=== PATIENT | female | born 1990 | race American Indian/Alaskan Native ===

== ENCOUNTER 2019-11-19 12:45 | Observation (INO) | payer MEDICAID ==
[2019-11-19] MEDS ORDERED: LACTATED RINGERS 500 ML IV ONE (13:14)
[2019-11-19] MEDS ORDERED: ACETAMINOPHEN 325 MG TAB PO PRN ×2 (13:27→20:31)
[2019-11-19 14:01] LABS: Bacteria,Urine 1+ /HPF (Negative); Bilirubin,Urine NEG (Negative); Blood,Urine NEG (Negative); Color,Urine Straw (Yellow); Protein,Urine <15 mg/dL mg/dL (Negative); Urobilinogen,Urine < 2.0 mg/dL (<2.0); WBC,Urine < 1.0 /HPF (0.0-6.0)
[2019-11-19 14:04] LABS: RBC,Urine < 1.0 /HPF (0.0-6.0)
[2019-11-19] MEDS ORDERED: LACTATED RINGERS 2,000 ML IV ONE (15:04)
--- NOTE | 2019-11-19 16:25 | Ultrasound Report ---
Limited OB Ultrasound Biophysical profile HISTORY: well-being. TECHNIQUE: Grayscale and color imaging performed. COMPARISON: None FINDINGS: Single viable intrauterine gestation with cephalic presentation and IVAN of 7 cm. Placenta i s seen anteriorly with heart rate of 152 bpm. A small anterior uterine fibroid is present. On biophysical profile, the fetus received a score of 2 out of 2 for breathing movement, movement, po sture/tone, and IVAN. Total score was 8 out of 8. Heart rate was 157 bpm for this portion of the exam. IMPRESSION: 1. Single viable intrauterine gestation as above. 2. Normal biophysical profile. Signer Name: Marlon Sahni MD Signed: 11/19/2019 4:20 PM Workstation Name: [id number]
--- NOTE | 2019-11-19 18:31 | Ultrasound Report ---
Biophysical profile INDICATION: well-being COMPARISON: None FINDINGS: breathing movement: 2/2 movement: 2/2 posture and tone: 2/2 Qualitative amniotic fluid volume: 2/2 IMPRESSION: Total score for biophysical profile is 8/8 heart rate is 157 bpm Signer Name: Jason Gordillo MD Signed: 11/19/2019 6:26 PM Workstation Name: [facility]
[2019-11-19] MEDS ORDERED: TERBUTALINE 1 MG/1 ML INJ SUB-Q ONE (18:45)
[2019-11-19] MEDS ORDERED: MAGNESIUM HYDROXIDE (MOM) ORAL LIQD UDC PO PRN (20:31)
[2019-11-19] MEDS ORDERED: DOCUSATE SODIUM 100 MG CAP PO PRN (20:31)
[2019-11-19] MEDS ORDERED: LACTATED RINGERS 1,000 ML ONE (20:32)
[2019-11-19] MEDS ORDERED: LACTATED RINGERS 1,000 ML IV SCH (21:00)
[2019-11-19] MEDS ORDERED: BETAMET ACET/BETAMET NA PH 6 MG/ML INJ 5 ML MDV IM SCH (21:00)
--- NOTE | 2019-11-19 23:37 | History and Physical Report ---
History of Present Illness Date of examination: 11/19/19 (Pt with lower abdominal and pelvic pain) Date of admission: 11/19/2019 Chief complaint: "I'm having lower stomach pain and pain in my bladder area" History of present illness: EDC Confirmation: 01/27/2020 Gestational Age: 7 6/7 weeks Past History : 2 Term Births: 1 Premature Births: 0 Living Children: 1 Para: 1 Mult. Births: 0 Prev : 0 Aborta: 0 Elect. Ab: 0 Spont. 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 of genital herpes: no Partner hx. of genital herpes: no Rash, Viral, or Febrile illness since last LMP? no Varicella/Chicken Pox Status: Previous Disease Genetic History Congenital Heart Defect: Mom: no Dad: no Hitesh Disease: Mom: no Dad: no Thalassemia Mom: no Dad: no Neural Tube Defect Mom: no Dad: no Down's Syndrome Mom: no Dad: no Mario-Sachs Mom: no Dad: no Sickle Cell Disease/Trait Mom: no Dad: no Hemophilia Mom: no Dad: no Muscular Dystrophy Mom: no Dad: no Cystic Fibrosis Mom: no Dad: no [place] Chorea Mom: no Dad: no Mental Retardation Mom: no Dad: no Fragile X Mom: no Dad: no Other Genetic/Chromosomal Disorder Mom: no Dad: no Child w/other defect Mom: no Dad: no Enviromental Exposures Xray Exposure: no Medication, drug, or alcohol use since LMP: no Chemical/Other Exposure: no Exposure to Cat Liter: no Hx of Parvovirus (Fifth Disease): no Occupational Exposure to Children: none Active Medications (reviewed today): ZOFRAN ODT 8 MG ORAL TABLET DISINTEGRATING (ONDANSETRON) 1 po q12hrs prn PLUS 27-1 MG ORAL TABLET ( VIT-FE FUMARATE-FA) 1 po daily Current Allergies (reviewed today): No known allergies Past History Past Medical History: no pertinent history Past Surgical History: no surgical history 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 Family/Genetic History: diabetes, hypertension Social history: no significant social history - Obstetrical History Expected Date of Delivery: 01/27/20 Actual Gestation: 30 Week(s) 2 Day(s) : 2 Para: 1 Hx # Term Pregnancies: 1 Number of Pregnancies: 0 Spontaneous Abortions: 0 Induced : 0 Number of Living Children: 1 Medications and Allergies Allergies Allergy/AdvReac Type Severity Reaction Status Date / Time No Known Allergies Allergy Verified 10/09/13 10:45 Home Medications Medication Instructions Recorded Confirmed Last Taken Type Vit,Calc76/Iron/Folic 1 each PO QDAY 10/09/13 10/09/13 Unknown History [Prenatabs Rx Tablet] Ibuprofen [Motrin 800 MG tab] 800 mg PO TID PRN #30 tablet 10/10/13 Unknown Rx Active Meds: Active Medications Acetaminophen (Tylenol) 1,000 mg PO Q4H PRN PRN Reason: Non Cardiac Pain or Temp>100.5 Last Admin: 11/19/19 14:16 Dose: 1,000 mg Documented by: Acetaminophen (Tylenol) 650 mg PO Q4H PRN PRN Reason: Pain MILD(1-3)/Fever >100.5/CRABTREE Betamethasone Acet/Betameth SodPhos (Celestone Soluspan) 12 mg IM Q24H ABY Stop: 11/20/19 20:59 Docusate Sodium (Colace) 100 mg PO Q12H PRN PRN Reason: Constipation Lactated Ringer's (Lactated Ringers) 1,000 mls @ 125 mls/hr IV DIRECT ABY Last Admin: 11/19/19 21:31 Dose: 125 mls/hr Documented by: Magnesium Hydroxide (Milk Of Magnesia) 30 ml PO QHS PRN PRN Reason: Laxative Effect Multivitamins/Iron/Calcium ( Vitamin) 1 each PO QDAY [facility] Review of Systems All systems: negative - Vital Signs Vital signs: Vital Signs Pulse BP 75 104/62 11/19/19 13:08 11/19/19 13:08 Temp Pulse Resp BP Pulse Ox 98.1 F 94 H 18 98/54 96 11/19/19 23:28 11/19/19 23:33 11/19/19 23:28 11/19/19 23:33 11/19/19 23:29 - Physical Exam Breasts: Positive: deferred Cardiovascular: Regular rate, Normal S1, Normal S2 Lungs: Positive: Clear to auscultation Abdomen: Positive: normal appearance, soft, normal bowel sounds Genitourinary (Female): Positive: normal external genitalia, normal perenium Vulva: both: normal Vagina: Positive: normal moisture Cervix: Negative: lesion, discharge Uterus: Positive: normal size, normal contour Anus/Rectum: Positive: normal perianal skin, heme negative. Negative: rectal mass, hemorrhoids Extremities: Positive: normal Deep Tendon Reflex Grade: Normal +2 - Obstetrical FHR: category 2 FHR comments: Upon examination in triage it was noted that she had a category 2 strip. Ctxs with variables and late decelerations noted. Cervical exam cl/th/hi. IV was initiated and 1 liter bolus X 2 was given. She was also repositioned and O2 was administered. Uterine Contraction Monitor Mode: External Cervical Dilatation: 0 Cervical Effacement Percentage: 0 station: -3 Uterine Contraction Pattern: Irregular Uterine Tone Measurement Phase: Resting Uterine Contraction Intensity: Moderate Results Result Diagrams: 11/19/19 21:13 Abnormal lab results 11/19/19 Range/Units 13:10 Urine pH 8.0 H (5.0-7.0) All other labs normal. GBS Unknown HBsAg Screen Negative Negative *1 RPR Non Reactive Non Reactive *2 Rubella Antibodies, IgG 6.13 index Immune >0.99 *3 Non-immune <0.90 Equivocal 0.90 - 0.99 Immune >0.99 ABO Grouping O *4 Rh Factor Positive *5 Please note: Prior records for this patient's ABO / Rh type are not available for additional verification. Antibody Screen Negative Negative *6 WBC 5.0 x10E3/uL 3.4-10.8 *7 RBC [L] 3.39 x10E6/uL 3.77-5.28 *8 Hemoglobin [L] 10.5 g/dL 11.1-15.9 *9 Hematocrit [L] 31.0 % 34.0-46.6 *10 MCV 91 fL 79-97 *11 MCH 31.0 pg 26.6-33.0 *12 MCHC 33.9 g/dL 31.5-35.7 *13 RDW 12.9 % 12.3-15.4 *14 Platelets 248 x10E3/uL 150-450 *15 Neutrophils 64 % Not Estab. *16 Lymphs 28 % Not Estab. *17 Monocytes 8 % Not Estab. *18 Eos 0 % Not Estab. *19 Basos 0 % Not Estab. *20 ! Immature Cells <No Reported Value> *21 Neutrophils (Absolute) 3.2 x10E3/uL 1.4-7.0 *22 Lymphs (Absolute) 1.4 x10E3/uL 0.7-3.1 *23 Monocytes(Absolute) 0.4 x10E3/uL 0.1-0.9 *24 Eos (Absolute) 0.0 x10E3/uL 0.0-0.4 *25 Baso (Absolute) 0.0 x10E3/uL 0.0-0.2 *26 ! Immature Granulocytes 0 % Not Estab. *27 ! Immature Grans (Abs) 0.0 x10E3/uL 0.0-0.1 *28 ! NRBC <No Reported Value> *29 Hematology Comments: <No Reported Value> *30 Tests: (2) HB Solu + Rflx [facility] ([id number]) Hemoglobin (Hgb) Solubility Negative Negative *31 Tests: (3) Panel 123061 ([id number]) HIV Screen 4th Generation wRfx Non Reactive Non Reactive *32 Tests: (4) HCV Ab w/Rflx to Verification ([id number]) ! HCV Ab 0.1 s/co ratio 0.0-0.9 *33 Tests: (5) Comment: ([id number]) ! Comment: SPR[facility] *34 Non reactive HCV antibody screen is consistent with no HCV infection, unless recent infection is suspected or other evidence exists to indicate HCV infection. Tests: (6) Urine Culture, Routine (183897) Urine Culture, Routine Final report *35 Assessment and Plan A: 29 y.o. @ 30+ wks with c/o lower abdominal and pelvic pain, being observed for labor, with category 2 tracing. P:Consulted and made plan of care with Dr. Ruiz. Admit to obs, administer terb, betamethasone, continue with IV fluids, NPO for now, and continue to watch maternal and status. Consult with [facility] for further recommendations, call placed. Plan discussed with pt and family present in room with her. Pt agrees with plan of care.
[2019-11-20 05:58] LABS: Basophils % (Auto) 0.5 % (0.0-1.8); Eosinophils % (Auto) 0.3 % (0.0-4.3); Hematocrit 31.1 % (30.3-42.9); Hemoglobin 10.5 gm/dl (10.1-14.3); Lymphocytes # (Auto) 1.8 K/mm3 (1.2-5.4); Lymphocytes % (Auto) 19.7 % (13.4-35.0); Mean Corpuscular HGB Conc 34 % (30-34); Mean Corpuscular Volume 97 fl (79-97); Monocytes # (Auto) 0.7 K/mm3 (0.0-0.8); Monocytes % (Auto) 7.6 % (0.0-7.3); Platelet Count 216 K/mm3 (140-440); Red Cell Distribution Width 12.6 % (13.2-15.2)
--- NOTE | 2019-11-20 06:34 | Progress Note ---
Assessment and Plan pt resting with voiced c/o occasional ctx. VSS IVFs infusing. Second dose of BMZ due this evening @ 2139. Will continue POC [facility] consulted. - Patient Problems (1) 30 weeks gestation of Onset Date: ~11/20/19 Current Visit: Yes Status: Acute Plan to address problem: Pt to be seen by AMFM today. Will continue plan as ordered. (2) contractions Onset Date: ~11/20/19 Current Visit: Yes Status: Acute Plan to address problem: Ctx have decreased overall per pt. in timing and intensity. "I have been able to sleep." Subjective - Subjective Date of service: 11/20/19 (resting; c/o occassional ctx) Principal diagnosis: IUP 30w2d with ctx; 2nd dose BMZ @ 2139 Patient reports: movement normal Objective - Vital Signs Vital Signs: Vital Signs - 12hr 11/19/19 11/19/19 11/19/19 19:00 19:53 19:58 Temperature Pulse Rate 86 77 93 H Respiratory Rate Blood Pressure 111/67 112/66 Blood Pressure [Right] O2 Sat by Pulse 96 Oximetry 11/19/19 11/19/19 11/19/19 20:03 20:08 20:13 Temperature 98.8 F Pulse Rate 88 91 H 96 H Respiratory 18 Rate Blood Pressure Blood Pressure 112/66 [Right] O2 Sat by Pulse 98 99 100 Oximetry 11/19/19 11/19/19 11/19/19 20:18 20:23 20:28 Temperature Pulse Rate 96 H 117 H 102 H Respiratory Rate Blood Pressure Blood Pressure [Right] O2 Sat by Pulse 99 99 99 Oximetry 11/19/19 11/19/19 11/19/19 20:33 20:38 20:43 Temperature Pulse Rate 108 H 103 H 98 H Respiratory Rate Blood Pressure Blood Pressure [Right] O2 Sat by Pulse 99 98 98 Oximetry 11/19/19 11/19/19 11/19/19 20:48 20:53 20:58 Temperature Pulse Rate 107 H 108 H 98 H Respiratory Rate Blood Pressure Blood Pressure [Right] O2 Sat by Pulse 97 97 97 Oximetry 11/19/19 11/19/19 11/19/19 21:03 21:08 21:13 Temperature Pulse Rate 95 H 89 108 H Respiratory Rate Blood Pressure Blood Pressure [Right] O2 Sat by Pulse 98 97 98 Oximetry 11/19/19 11/19/19 11/19/19 21:18 21:23 21:28 Temperature Pulse Rate 100 H 87 69 Respiratory Rate Blood Pressure Blood Pressure [Right] O2 Sat by Pulse 100 99 69 L Oximetry 11/19/19 11/19/19 11/19/19 23:28 23:29 23:33 Temperature 98.1 F Pulse Rate 94 H 88 94 H Respiratory 18 Rate Blood Pressure 98/54 Blood Pressure 98/54 [Right] O2 Sat by Pulse 99 96 Oximetry 11/20/19 11/20/19 11/20/19 04:02 04:03 04:07 Temperature 97.8 F Pulse Rate 80 77 79 Respiratory 16 Rate Blood Pressure 99/58 Blood Pressure 99/58 [Right] O2 Sat by Pulse 95 95 Oximetry 11/20/19 11/20/19 11/20/19 04:12 04:17 04:22 Temperature Pulse Rate 78 74 69 Respiratory Rate Blood Pressure Blood Pressure [Right] O2 Sat by Pulse 98 98 99 Oximetry 11/20/19 11/20/19 11/20/19 04:27 04:32 04:37 Temperature Pulse Rate 71 73 79 Respiratory Rate Blood Pressure Blood Pressure [Right] O2 Sat by Pulse 99 99 99 Oximetry 11/20/19 04:49 Temperature Pulse Rate 62 Respiratory Rate Blood Pressure Blood Pressure [Right] O2 Sat by Pulse 71 L Oximetry - Exam Breasts: deferred Cardiovascular: Regular rate Lungs: Normal air movement Abdomen: Present: normal appearance, soft. Absent: distention, tenderness Uterus: Present: normal FHR: auscultation normal, category 2 FHR comments: pt will have a spontaneous decel but overall the strip is Cat 1 Uterine Contraction Monitor Mode: External Uterine Contraction Pattern: Irregular (1-2 per hour) Uterine Tone Measurement Phase: Resting Uterine Contraction Intensity: Mild Extremities: normal Deep Tendon Reflex Grade: Normal +2 - Labs Labs: Abnormal Labs 11/19/19 11/19/19 13:10 21:13 RBC 3.20 L MCH 33 H RDW 12.6 L [place] % (Auto) 7.6 H Seg Neutrophils % 71.9 H Urine pH 8.0 H Laboratory Results - last 24 hr 11/19/19 11/19/19 11/19/19 13:10 21:13 21:13 WBC 9.3 RBC 3.20 L Hgb 10.5 Hct 31.1 MCV 97 MCH 33 H MCHC 34 RDW 12.6 L Plt Count 216 MPV Lymph % (Auto) 19.7 [place] % (Auto) 7.6 H Eos % (Auto) 0.3 Baso % (Auto) 0.5 Lymph # 1.8 [place] # 0.7 Eos # 0.0 Baso # 0.0 Add Manual Diff Seg Neutrophils % 71.9 H Seg Neutrophils # 6.7 Urine Color Straw Urine Turbidity Clear Urine pH 8.0 H Ur Specific [place] 1.005 Urine Protein <15 mg/dl Urine Glucose (UA) Neg Urine Ketones Neg Urine Blood Neg Urine Nitrite Neg Urine Bilirubin Neg Urine Urobilinogen < 2.0 Ur Leukocyte Esterase Neg Urine WBC (Auto) < 1.0 Urine RBC (Auto) < 1.0 Urine Bacteria (Auto) 1+ Syphilis IgG Antibody Non-reactive HIV 1&2 Antibody Rapid HIV P24 Antigen Blood Type Antibody Screen 11/19/19 11/19/19 21:13 21:25 WBC Cancelled RBC Cancelled Hgb Cancelled Hct Cancelled MCV Cancelled MCH Cancelled MCHC Cancelled RDW Cancelled Plt Count Cancelled MPV Cancelled Lymph % (Auto) Cancelled [place] % (Auto) Cancelled Eos % (Auto) Cancelled Baso % (Auto) Cancelled Lymph # Cancelled [place] # Cancelled Eos # Cancelled Baso # Cancelled Add Manual Diff Cancelled Seg Neutrophils % Cancelled Seg Neutrophils # Cancelled Urine Color Urine Turbidity Urine pH Ur Specific [place] Urine Protein Urine Glucose (UA) Urine Ketones Urine Blood Urine Nitrite Urine Bilirubin Urine Urobilinogen Ur Leukocyte Esterase Urine WBC (Auto) Urine RBC (Auto) Urine Bacteria (Auto) Syphilis IgG Antibody HIV 1&2 Antibody Rapid Non react HIV P24 Antigen Non react Blood Type O POSITIVE Antibody Screen Negative
[2019-11-20] MEDS ORDERED: PRENATAL VIT27-FE FUMARATE-FOLIC ACID VIT TAB PO SCH (10:00)
--- NOTE | 2019-11-20 12:54 | Event Note ---
Date: 11/20/19 (spoke with Dr Riley) Dr Riley ask that I order a doppler and she will have her office call the pt and phani her appt in their office. Unless there is any chg in condition pt may go after 2nd dose of BMZ. Report given to Dr Orozco.
--- NOTE | 2019-11-20 13:54 | Ultrasound Report ---
Umbilical artery velocity exam INDICATION: IUGR at 30 weeks FINDINGS: heart rate is 149 bpm. There is positive diastolic flow throughout the exam. The free loop S/D ratios were calculated at 3 s ites measuring 3.43, 3.82 and 4.85. The average S/D ratio4.0 and a intermittent diastolic waveform The resistive indices at the 3 sites measure 0.71, 0.74, 0.79 with an average of 0.[address] tolic waveform IMPRESSION: The S/D ratio is elevated. The resistive index is elevated. Signer Name: Jason Gordillo MD Signed: 11/20/2019 1:50 PM Workstation Name: [id number]
--- NOTE | 2019-11-20 18:12 | Progress Note ---
<KITTY DEVI - Last Filed: 11/20/19 18:09> Assessment and Plan Dr Orozco consulted with Dr Riley @ [facility] Will continue EFM overnight and d/c in the AM. Pt will have appt with [facility] in their [place] office @ 0900. Pt instructed to hydrate and to monitor FKC. IVF converted to INT. Regular diet. PO fluids @ bedside. All questions addressed. Pt and family agree to POC - Patient Problems (1) 30 weeks gestation of Onset Date: ~11/20/19 Current Visit: Yes Status: Acute (2) contractions Onset Date: ~11/20/19 Current Visit: Yes Status: Acute Subjective - Subjective Date of service: 11/20/19 (pt in good spirits) Principal diagnosis: IUP 30w2d with ctx; 2nd dose BMZ @ 2140 Patient reports: movement normal Objective - Vital Signs Vital Signs: Vital Signs - 12hr 11/20/19 11/20/19 11/20/19 06:45 12:22 12:23 Temperature 99.4 F Pulse Rate 87 78 Respiratory 18 Rate Blood Pressure 88/50 90/53 O2 Sat by Pulse Oximetry 11/20/19 11/20/19 11/20/19 12:25 12:28 16:24 Temperature 98.1 F Pulse Rate 86 79 Respiratory Rate Blood Pressure 91/50 O2 Sat by Pulse 99 Oximetry - Exam Breasts: deferred Cardiovascular: Regular rate Lungs: Normal air movement Abdomen: Present: normal appearance, soft, normal bowel sounds. Absent: distention, tenderness Uterus: Present: normal FHR: auscultation normal, category 1 Uterine Contraction Monitor Mode: External Uterine Contraction Pattern: Absent Uterine Tone Measurement Phase: Resting Extremities: normal Deep Tendon Reflex Grade: Normal +2 - Labs Labs: Abnormal Labs 11/19/19 11/19/19 13:10 21:13 RBC 3.20 L MCH 33 H RDW 12.6 L [place] % (Auto) 7.6 H Seg Neutrophils % 71.9 H Urine pH 8.0 H Laboratory Results - last 24 hr 11/19/19 11/19/19 11/19/19 21:13 21:13 21:13 WBC 9.3 Cancelled RBC 3.20 L Cancelled Hgb 10.5 Cancelled Hct 31.1 Cancelled MCV 97 Cancelled MCH 33 H Cancelled MCHC 34 Cancelled RDW 12.6 L Cancelled Plt Count 216 Cancelled MPV Cancelled Lymph % (Auto) 19.7 Cancelled [place] % (Auto) 7.6 H Cancelled Eos % (Auto) 0.3 Cancelled Baso % (Auto) 0.5 Cancelled Lymph # 1.8 Cancelled [place] # 0.7 Cancelled Eos # 0.0 Cancelled Baso # 0.0 Cancelled Add Manual Diff Cancelled Seg Neutrophils % 71.9 H Cancelled Seg Neutrophils # 6.7 Cancelled Syphilis IgG Antibody Non-reactive HIV 1&2 Antibody Rapid Non react HIV P24 Antigen Non react Blood Type Antibody Screen 11/19/19 21:25 WBC RBC Hgb Hct MCV MCH MCHC RDW Plt Count MPV Lymph % (Auto) [place] % (Auto) Eos % (Auto) Baso % (Auto) Lymph # [place] # Eos # Baso # Add Manual Diff Seg Neutrophils % Seg Neutrophils # Syphilis IgG Antibody HIV 1&2 Antibody Rapid HIV P24 Antigen Blood Type O POSITIVE Antibody Screen Negative <MAYRA OROZCO - Last Filed: 11/20/19 19:52> Assessment and Plan Plan of care explained, questions encouraged and answered, she voiced understanding and agrees with plan of care Objective - Vital Signs Vital Signs: Vital Signs - 12hr 11/20/19 11/20/19 11/20/19 12:22 12:23 12:25 Temperature Pulse Rate 87 78 86 Blood Pressure 88/50 90/53 O2 Sat by Pulse 99 Oximetry 11/20/19 11/20/19 11/20/19 12:28 16:24 18:29 Temperature 98.1 F Pulse Rate 79 87 Blood Pressure 91/50 101/65 O2 Sat by Pulse 100 Oximetry 11/20/19 11/20/19 11/20/19 18:34 18:39 18:44 Temperature Pulse Rate 92 H 83 85 Blood Pressure O2 Sat by Pulse 100 100 100 Oximetry 11/20/19 11/20/19 11/20/19 18:49 18:54 18:59 Temperature Pulse Rate 89 85 86 Blood Pressure O2 Sat by Pulse 100 100 100 Oximetry 11/20/19 11/20/19 11/20/19 19:04 19:09 19:14 Temperature Pulse Rate 80 82 84 Blood Pressure O2 Sat by Pulse 100 99 98 Oximetry 11/20/19 11/20/1911/20/20 19:19 19:24 19:29 Temperature Pulse Rate 79 85 87 Blood Pressure O2 Sat by Pulse 98 98 98 Oximetry 11/20/19 11/20/19 11/20/19 19:34 19:39 19:44 Temperature Pulse Rate 86 89 84 Blood Pressure O2 Sat by Pulse 98 99 98 Oximetry - Labs Labs: Abnormal Labs 11/19/19 11/19/19 13:10 21:13 RBC 3.20 L MCH 33 H RDW 12.6 L [place] % (Auto) 7.6 H Seg Neutrophils % 71.9 H Urine pH 8.0 H Laboratory Results - last 24 hr 11/19/19 11/19/19 11/19/19 21:13 21:13 21:13 WBC 9.3 Cancelled RBC 3.20 L Cancelled Hgb 10.5 Cancelled Hct 31.1 Cancelled MCV 97 Cancelled MCH 33 H Cancelled MCHC 34 Cancelled RDW 12.6 L Cancelled Plt Count 216 Cancelled MPV Cancelled Lymph % (Auto) 19.7 Cancelled [place] % (Auto) 7.6 H Cancelled Eos % (Auto) 0.3 Cancelled Baso % (Auto) 0.5 Cancelled Lymph # 1.8 Cancelled [place] # 0.7 Cancelled Eos # 0.0 Cancelled Baso # 0.0 Cancelled Add Manual Diff Cancelled Seg Neutrophils % 71.9 H Cancelled Seg Neutrophils # 6.7 Cancelled Syphilis IgG Antibody Non-reactive HIV 1&2 Antibody Rapid Non react HIV P24 Antigen Non react Blood Type Antibody Screen 11/19/19 21:25 WBC RBC Hgb Hct MCV MCH MCHC RDW Plt Count MPV Lymph % (Auto) [place] % (Auto) Eos % (Auto) Baso % (Auto) Lymph # [place] # Eos # Baso # Add Manual Diff Seg Neutrophils % Seg Neutrophils # Syphilis IgG Antibody HIV 1&2 Antibody Rapid HIV P24 Antigen Blood Type O POSITIVE Antibody Screen Negative
[2019-11-21 06:58] VITALS: BP 111/60
--- NOTE | 2019-11-21 07:28 | Discharge Summary ---
Providers - Providers Date of Admission: 11/19/19 12:46 Date of discharge: 11/21/19 Attending physician: FLORENCIO LEO 11/19/19 20:31 Consult to Physician [CONS] Routine Comment: Consulting Provider: HARRY ADDISON Physician Instructions: Pt with contractions Reason For Exam: High risk patient Primary care physician: FLORENCIO LEO Hospitalization Reason for admission: labor and IUGR Condition: Good Procedures: u/s and monitoring Hospital course: uncomplicated antepartum admission Disposition: SC-01 TO HOME OR SELFCARE - Discharge Diagnoses (1) IUGR (intrauterine growth restriction) Status: Acute (2) 30 weeks gestation of Status: Acute (3) contractions Status: Resolved Core Measure Documentation - Palliative Care Palliative Care/ Comfort Measures: Not Applicable - Core Measures Any of the following diagnoses?: none Exam - Constitutional Vitals: Temp Pulse Resp BP Pulse Ox 97.7 F 94 H 18 111/60 84 11/21/19 07:02 11/21/19 07:23 11/20/19 20:22 11/21/19 06:57 11/21/19 07:23 General appearance: Present: no acute distress, well-nourished - EENT Eyes: Present: PERRL ENT: hearing intact, clear oral mucosa - Neck Neck: Present: supple, normal ROM - Respiratory Respiratory effort: normal Respiratory: bilateral: CTA - Cardiovascular Heart Sounds: Present: S1 & S2. Absent: rub, click - Extremities Extremities: pulses symmetrical, No edema - Abdominal General gastrointestinal: Present: soft, non-tender, non-distended, normal bowel sounds Female genitourinary: Present: normal - Integumentary Integumentary: Present: clear, warm, dry - Musculoskeletal Musculoskeletal: gait normal, strength equal bilaterally - Psychiatric Psychiatric: appropriate mood/affect, intact judgment & insight - Neurologic Neurologic: CNII-XII intact, moves all extremities - Additional findings Additional findings: overall FHT CAT 1 Plan Activity: no restrictions Diet: regular Follow up with: FLORENCIO LEO MD [Primary Care Provider] - 7 Days (Please keep your appointment with [facility] this morning @ 0900 and call [phone] to schedule an appointment for next week in our office. Call if you do not feel your baby move at least 4 times in 1 hour.)
== END 2019-11-21 08:11 | disposition home or self-care (01) ==
LOC: TRG 12:45 → LD 12:46 → TRG 12:46 → LD 17:45
PROVIDERS: ADMIT Obstetrics & Gynecology; ATTEND Obstetrics & Gynecology
DX: O26.893 Other specified pregnancy related conditions, third trimester (principal); R10.30 Lower abdominal pain, unspecified; R10.2 Pelvic and perineal pain; O36.5930 Maternal care for other known or suspected poor fetal growth, third trimester, not applicable or unspecified; O60.03 Preterm labor without delivery, third trimester; Z3A.30 30 weeks gestation of pregnancy
CPT/HCPCS: 36415; 76815; 76819; 76820; 81001; 85025; 86592; 86850; 86900; 86901; 87806; 96372; G0378; J0702; J3105; J7120; 96360